=== PATIENT | female | born 1995 | race Caucasian/White ===

== ENCOUNTER 2017-10-14 13:01 | Emergency (ER) | payer BC ==
[2017-10-14] MEDS ORDERED: Ondansetron ODT 4 MG TAB ONE (15:11)
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
== END 2017-10-14 16:03 | disposition home or self-care (01) ==
LOC: ERS 13:01
DX: S06.0X0A Concussion without loss of consciousness, initial encounter (principal); W22.042A Striking against wall of swimming pool causing other injury, initial encounter; Y92.34 Swimming pool (public) as the place of occurrence of the external cause
CPT/HCPCS: 70450; Q0162